=== PATIENT | female | born 1955 | race Caucasian/White ===

== ENCOUNTER 2017-04-01 07:52 | Day surgery (SDC) | payer OTHER ==
--- NOTE | 2017-03-27 16:02 | HP ---
PREOPERATIVE HISTORY AND PHYSICAL EXAM: DATE OF ADMISSION/SURGERY: 04/01/17 DATE OF OFFICE VISIT/ENCOUNTER: 03/26/17 ATTENDING PHYSICIAN: Corin Manzano MD PROCEDURE: Right ring finger trigger finger release. CHIEF COMPLAINT: Right ring finger triggering. HISTORY OF PRESENT ILLNESS: This is a 61-year-old female, who complains of triggering and locking of the right ring finger. She has had 3 cortisone injections in the past. The last one was a couple of weeks ago, and the patient is interested in having a more permanent solution to the problem. Injections were performed by her primary care physician. After evaluation following discussion with Dr. Manzano, the patient has agreed to proceed with surgical intervention at this point in the form of her right ring finger trigger finger release. PAST MEDICAL HISTORY: 1. Hypothyroidism. 2. Uveitis. PAST SURGICAL HISTORY: 1. Bilateral cataract surgery. 2. Vitrectomy, left eye. CURRENT MEDICATIONS: 1. Acetaminophen 325 mg 2 tablets q.6 hours p.r.n. pain. 2. Alendronate sodium 35 mg 1 tab once a week. 3. Eye drop 0.5%. 4. Flaxseed oil 1000 mg daily. 5. Fluticasone propionate 50 mcg 2 sprays each nostril daily p.r.n. 6. Daily probiotic. 7. Ibuprofen 400 mg q.4 to 6 hours p.r.n. 8. Levothyroxine sodium 112 mcg daily. 9. Magnesium 200 mg 2 tabs daily. 10. Mycophenolate mofetil 500 mg 2 tabs b.i.d. 11. Vitamin D3 2000 units daily. ALLERGIES: No known drug allergies. FAMILY MEDICAL HISTORY: Noncontributory. 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 She is very active watching her grandchildren at home. She denies tobacco use and recreational drug use. She does admit to alcohol use on occasion. REVIEW OF SYSTEMS: General: Negative for fevers, chills, or night sweats. No known anesthesia problems. HEENT: Negative for headache, lightheadedness, or syncopal episodes. Integumentary: Negative for abrasions, lesions, or open wounds. Cardiothoracic: Negative for hypertension, chest pain, palpitations, or edema. Pulmonary: Negative for shortness of breath with exertion, chronic cough, COPD. GI: Negative for nausea, vomiting, diarrhea, constipation, or GERD. : Negative for nocturia, urinary frequency, urgency, history of UTIs, or kidney problems. Musculoskeletal: Positive for current complaint. Negative for chronic or intermittent back pain or history of fractures. Neurological: Negative for paresthesias, numbness, history of seizure, stroke, or epilepsy. Endocrine: Positive for hypothyroidism. Negative for diabetes. Hematologic: Negative for easy bruising, anemia, excessive bleeding, or history of DVT. Infectious Disease: Negative for history of MRSA, hepatitis C, or HIV. PHYSICAL EXAMINATION GENERAL: Well-developed, well-nourished, 61-year-old female, in no acute distress. VITAL SIGNS: Height 5 feet 4-1/4 inch, weight 144 pounds, blood pressure 142/ 90. HEENT: Normocephalic, atraumatic. Pupils are equal, round, and reactive to light and accommodation. Extraocular movements are intact. NECK: Supple. No palpable lymph nodes. Throat is clear. PULMONARY: Lungs are clear to auscultation bilaterally. No wheezes, rales, or rhonchi. CARDIOVASCULAR: Regular rate and rhythm. S1, S2. No murmurs, rubs, or gallops. No edema. ABDOMEN: Positive bowel sounds. Soft, nontender. NEUROLOGIC: Alert and oriented x3. Cranial nerves II through XII are intact. Sensation is intact to light touch. PERIPHERAL VASCULAR: 2+ radial and ulnar pulses. Negative Shola test. MUSCULOSKELETAL: On exam of her right hand, she has tenderness to palpation at the A1 alexander of her ring finger, stiffness as she tries to flex the finger. She has a small cystic mass in the area of the tenderness. She has full extension of the finger. Skin is intact and neurovascular function is intact. IMPRESSION: Right ring finger trigger finger. PLAN: The patient is scheduled to undergo a right ring finger trigger finger release with Dr. Manzano on 04/01/17. She will return to the office in 10 to 14 days postop for followup and suture removal. A prescription for Ultracet was e- scribed to the patient's pharmacy for postoperative pain management. TREVIN MERCHANT [id number]/[facility] #: [id number] YAN
[~2017-04-01 07:52] MED LIST: Buffered Lidocaine 1% SYRIN* 5 ML/SYR SYRINGE INTRADERM ONE; Famotidine IV* 10 MG/ML 2 ML (20 mg) IV ONE; Lidocaine 1% INJ* 10 MG/ML 30 ML SDV ONE
[2017-04-01] MEDS ORDERED: Buffered Lidocaine 1% SYRIN* 5 ML/SYR SYRINGE ONE (08:02)
[2017-04-01] MEDS ORDERED: Famotidine IV* 10 MG/ML 2 ML (20 mg) ONE (08:02)
[2017-04-01] MEDS ORDERED: Midazolam* 1 MG/ML 5 ML VIAL (5 MG) ONE (08:57)
[2017-04-01] MEDS ORDERED: fentaNYL* 50 MCG/ML 2 ML VIAL (100 MCG VIAL) ONE (08:57)
[2017-04-01] MEDS ORDERED: Ketorolac INJ* 30 MG/ML 1 ML VIAL ONE (08:58)
[2017-04-01] MEDS ORDERED: Lidocaine 2% PF * 5 ML VIAL ONE (08:58)
[2017-04-01] MEDS ORDERED: Propofol* 10 MG/ML 20 ML BTL IV PUSH ONE (08:58)
[2017-04-01] MEDS ORDERED: Ondansetron INJ* 2 MG/ML VIAL ONE (08:58)
[2017-04-01] MEDS ORDERED: DiMENhydriNATE IV* 50 MG/ML VIAL IV PUSH PRN (09:02)
[2017-04-01] MEDS ORDERED: Acetaminophen TAB* 325 MG PO PRN (09:02)
[2017-04-01 10:19] VITALS: BP 133/73
--- NOTE | 2017-04-03 05:23 | OP ---
DATE OF OPERATION: 04/01/17 [facility] DATE OF : 53 SURGEON: Corin Manzano MD MAID SUPERVISOR: TREVIN Bruce ANESTHESIOLOGIST: Alexia Pantoja MD ANESTHESIA: Local MAC. PRE-OP DIAGNOSIS: Right ring finger trigger finger with a ganglion cyst. POST-OP DIAGNOSIS: Right ring finger trigger finger with a ganglion cyst. OPERATIVE PROCEDURE: Right ring finger trigger release with removal of ganglion cyst. INDICATIONS: Asher is 61-year-old woman with clicking and locking of her right ring finger and a painful palpable mass at the distal palmar flexion crease. She presents for trigger finger release and mass removal. ESTIMATED BLOOD LOSS: Zero. TOURNIQUET TIME: About 5 minutes. DESCRIPTION OF PROCEDURE: The patient was brought to the operating room, was given a sedation anesthetic and a local infiltration of 10 cc of 1% plain lidocaine in the palm of her right arm. The skin of her right hand and forearm was prepped and draped in the usual sterile fashion. The hand and forearm were exsanguinated and the tourniquet elevated to 250 mmHg. A transverse incision was made centered over the ring finger A1 alexander, dissected bluntly through the subcutaneous tissue down to the A1 alexander. The A1 alexander was incised longitudinally completely releasing the flexor tendons, which were in good condition. The wound was irrigated and the skin edges were reapproximated with 4-0 nylon suture. The wound was dressed with Xeroform, 4x4, Webril, and an Dandre wrap. The patient tolerated the procedure well and was brought to the recovery room in good condition. [id number]/[facility] #: [id number] [facility]ITALFred
== END 2017-04-01 10:35 | disposition home or self-care (01) ==
LOC: OREAST 07:52
PROVIDERS: ATTEND Orthopaedic Surgery
DX: M65.341 Trigger finger, right ring finger (principal); M67.441 Ganglion, right hand; E03.9 Hypothyroidism, unspecified
CPT/HCPCS: 88304; J1885; J2001; J2250; J2405; J2704; J3010